=== PATIENT | male | born 1995 | race Two or more races ===

== ENCOUNTER 2020-06-17 10:51 | Emergency (ER) | payer OTHER ==
[~2020-06-17] VITALS: Ht 177.8 cm; Wt 68.0 kg
== END 2020-06-17 13:05 | disposition home or self-care (01) ==
LOC: ER 10:51
DX: S93.401A Sprain of unspecified ligament of right ankle, initial encounter (principal); X50.0XXA Overexertion from strenuous movement or load, initial encounter; Y93.41 Activity, dancing; Y92.89 Other specified places as the place of occurrence of the external cause; Y99.8 Other external cause status